=== PATIENT | female | born 1995 | race Two or more races ===

== ENCOUNTER 2017-08-22 14:55 | Emergency (ER) | payer MEDICAID ==
[~2017-08-22] VITALS: Ht 152.4 cm; Wt 47.7 kg
[2017-08-22 15:50] LABS: HEMATOCRIT 39.6 % (34.6-47.8); HEMOGLOBIN 13.6 g/dL (11.7-16.4); WHITE BLOOD COUNT 8.5 x10^3/uL (4.5-13.2)
[2017-08-22] MEDS ORDERED: MAALOX/HYOSCYAMINE/LIDOCAINE 45 ML BTL PO ONE (16:00)
[2017-08-22 16:05] LABS: BLOOD UREA NITROGEN 7 mg/dL (7-18)
[2017-08-22] MEDS ORDERED: MAALOX/HYOSCYAMINE/LIDOCAINE 45 ML BTL ONE (16:10)
[2017-08-22 16:13] LABS: ASPARTATE AMINO TRANSFERASE 17 U/L (15-37)
[2017-08-22 17:01] VITALS: BP 122/85
== END 2017-08-22 17:20 | disposition home or self-care (01) ==
LOC: ED 16:39
DX: K29.00 Acute gastritis without bleeding (principal)
CPT/HCPCS: 36415; 76700; 80053; 81003; 83690; 84703; 85025; 99285

== ENCOUNTER 2019-09-22 23:30 | Emergency (ER) | payer MEDICAID ==
[~2019-09-22] VITALS: Ht 154.9 cm; Wt 49.4 kg
[2019-09-22 23:32] VITALS: BP 128/96
--- NOTE | 2019-09-22 23:46 | NUR ---
THIS IS A 24 YO FEMALE COMING IN FOR INSECT BITE TO LEFT MEDIAL ANKLE. BITE SARA, REDNESS, SWELLING, PAIN IN SURROUNDING TISSUE, AND WARMTH NOTED. PATIENT STATES SHE FIRST NOTED IT MONDAY AFTER BEING AT THE PARK. DENIES FEVER. NO OTHER SYMPTOMS NOTED. CALL LIGHT IN REACH, DENIES NEEDS AT THIS TIME.
--- NOTE | 2019-09-22 23:48 | NUR ---
RED TISSUE AROUND BITE MARKED WITH SKIN MARKER.
--- NOTE | 2019-09-22 23:53 | NUR ---
PHARMACY CALLED ABOUT POSSIBLE CROSS-REACTION TO ABX ORDERED IN REGARDS TO PATIENT ALLERGY. MD PAYAL NOTIFIED.
[2019-09-23] MEDS ORDERED: CLINDAMYCIN 300 MG CAPSULE PO ONE
[2019-09-23] MEDS ORDERED: CEPHALEXIN 500 MG CAPSULE PO ONE
[2019-09-23] MEDS ORDERED: CLINDAMYCIN 300 MG CAPSULE ONE (00:07)
--- NOTE | 2019-09-23 00:09 | NUR ---
PATIENT MEDICATED PER EMAR, TOLERATED WELL. DENIES NEEDS AT THIS TIME.
== END 2019-09-23 01:03 | disposition home or self-care (01) ==
LOC: ED 23:58
DX: S90.562A Insect bite (nonvenomous), left ankle, initial encounter (principal); L03.116 Cellulitis of left lower limb; W57.XXXA Bitten or stung by nonvenomous insect and other nonvenomous arthropods, initial encounter; Y93.89 Activity, other specified; Y92.830 Public park as the place of occurrence of the external cause; Y99.8 Other external cause status
CPT/HCPCS: 99283

== ENCOUNTER 2019-10-09 18:28 | Emergency (ER) | payer MEDICAID ==
[~2019-10-09] VITALS: Ht 152.4 cm; Wt 48.1 kg
[2019-10-09 18:33] VITALS: BP 120/75
[2019-10-09] MEDS ORDERED: FAMOTIDINE 20 MG TABLET PO ONE (19:00)
[2019-10-09] MEDS ORDERED: DIPHENHYDRAMINE 25 MG CAPSULE PO ONE (19:00)
[2019-10-09] MEDS ORDERED: DEXAMETHASONE 4 MG TABLET PO ONE (19:00)
[2019-10-09] MEDS ORDERED: DIPHENHYDRAMINE 50 MG CAPSULE ONE (19:40)
[2019-10-09] MEDS ORDERED: DEXAMETHASONE 4 MG TABLET ONE (19:40)
[2019-10-09] MEDS ORDERED: FAMOTIDINE 20 MG TABLET ONE (19:41)
== END 2019-10-09 20:47 | disposition home or self-care (01) ==
LOC: ED 19:33
DX: L23.2 Allergic contact dermatitis due to cosmetics (principal)
CPT/HCPCS: 99284; Q0163